=== PATIENT | male | born 1990 ===

== ENCOUNTER 2024-03-24 18:52 | Emergency (ER) | payer MEDICAID ==
[~2024-03-24] VITALS: Ht 185.4 cm; Wt 95.1 kg
[2024-03-24 19:43] LABS: BASOPHILS % (AUTO) 0.2 % (0-1); EOSINOPHILS # (AUTO) 0.1 X10'3 (0-0.9); EOSINOPHILS % (AUTO) 1.4 % (0-6); HEMATOCRIT 46.3 % (42.0-52.0); HEMOGLOBIN 15.8 g/dl (14.0-17.9); LYMPHOCYTES % (AUTO) 21.5 % (21-51); MEAN CORPUSCULAR HEMOGLOBIN 32.1 PG (27.0-31.0); MEAN CORPUSCULAR HGB CONC 34.2 g/dL (33.0-36.5); MEAN CORPUSCULAR VOLUME 93.9 FL (78-98); MEAN PLATELET VOLUME 7.7 FL (7.4-10.4); MONOCYTES # (AUTO) 0.8 X10'3 (0-0.9); MONOCYTES % (AUTO) 8.5 % (2-12); NEUTROPHILS # (AUTO) 6.5 X10'3 (1.8-7.7); NEUTROPHILS % (AUTO) 68.4 % (42-75); PLATELET COUNT 174 X10'3 (140-440); RED BLOOD COUNT 4.93 X10'6 (4.70-6.10); RED CELL DISTRIBUTION WIDTH 12.7 % (11.5-14.5); WHITE BLOOD COUNT 9.5 X10'3 (4.5-11.0)
[2024-03-24] MEDS: CefTRIAXone 2gm/D5W 50ml BAG 50 ML IV ONE (19:44)
[2024-03-24 19:53] LABS: ALBUMIN 3.6 G/DL (3.4-5.0); ANION GAP 9 (8-16); BLOOD UREA NITROGEN 16 MG/DL (7-18); BUN/CREATININE RATIO 15.8 (10.0-20.0); CHLORIDE 105 MMOL/L (99-107); CREATININE 1.01 MG/DL (0.60-1.10); GLUCOSE 113 MG/DL (70-104); MAGNESIUM 2.2 MG/DL (1.5-2.4); POTASSIUM 3.7 MMOL/L (3.5-5.1); SODIUM 140 MMOL/L (135-145); TOTAL CARBON DIOXIDE 25.7 MMOL/L (24-32); eCRCL 115 ML/MIN; eGFR 84 ML/MIN
[2024-03-24] MEDS ORDERED: VALA100031 PO (20:45)
[2024-03-24] MEDS ORDERED: CEPH-585 PO (20:45)
[2024-03-24] MEDS ORDERED: SULF1TAB49 PO (20:45)
[2024-03-24 21:04] VITALS: BP 132/81; PULSE 84; RESP 16; TEMP 98.6; O2SAT 99
== END 2024-03-24 21:14 | disposition home or self-care (01) ==
LOC: ER 18:54
DX: L02.512 Cutaneous abscess of left hand (principal); I89.1 Lymphangitis; F17.210 Nicotine dependence, cigarettes, uncomplicated
CPT/HCPCS: 36415; 73130; 80048; 83605; 83735; 84145; 85025; 87040; 96365; 99284; J0696